=== PATIENT | male | born 1960 | race Caucasian/White ===

== ENCOUNTER 2019-07-21 18:19 | Emergency (ER) | payer BC, OTHER ==
--- NOTE | 2019-07-21 18:48 | EDM.PDOC ---
<Cory Fonseca - Last Filed: 07/21/19 19:25> ED HPI GENERAL MEDICAL PROBLEM - General Chief Complaint: Upper Extremity Injury/Pain Stated Complaint: DISLOCATED RIGHT PINKY FINGER PER PT. Time Seen by Provider: 07/21/19 18:43 Source of Information: Reports: Patient History Limitations: Reports: No Limitations - History of Present Illness INITIAL COMMENTS - FREE TEXT/NARRATIVE: The patient presents to the ER with a finger injury. 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 Some tingling is reported to the finger along with some mild pain. No other concerns reported. Onset: Today Duration: Minutes:, Constant Location: Reports: Upper Extremity, Right (right 5th digit PIP dislocation) Quality: Reports: Other (numbness) Severity: Mild Improves with: Reports: None Worsens with: Reports: None Context: Reports: Activity Associated Symptoms: Reports: No Other Symptoms Right Finger-Little Pain Score (Numeric/FACES): 2 Social & Family History - Tobacco Use Smoking Status *Q: Never Smoker - Caffeine Use Caffeine Use: Reports: Coffee Review of Systems - Review of Systems Review Of Systems: ROS reveals no pertinent complaints other than HPI. ED EXAM, GENERAL - Physical Exam Exam: See Below Exam Limited By: No Limitations General Appearance: Alert, WD/WN, No Apparent Distress Eye Exam: Bilateral Eye: Normal Inspection, PERRL Ears: Normal External Exam, Normal Canal, Hearing Grossly Normal, Normal TMs Nose: Normal Inspection Head: Atraumatic, Normocephalic Respiratory/Chest: No Respiratory Distress, Normal Breath Sounds Cardiovascular: Normal Peripheral Pulses, No Edema GI/Abdominal: Normal Bowel Sounds, Soft, Non-Tender Extremities: Other (dislocated right 5th digit at PIP joint) Neurological: Alert, Oriented, CN II-XII Intact Psychiatric: Normal Affect, Normal Mood Skin Exam: Warm, Dry, Intact ED TRAUMA EXTREMITY PROCEDURES - Joint Reduction Site: Finger (R) (right 5th digit dislocation at PIP joint) Pre-Procedure NV Status: Normal Post-Procedure NV Status: Normal Technique: Traction/Counter Traction Number of Attempts: 1 Post-Reduction Imaging: Completely Reduced, No Fracture Seen Joint Reduction Complications: No - Splinting Right 5th Digit Pre-Procedure NV Status: Normal Post-Procedure NV Status: Normal Splint Material: Aluminum-Foam Splint Design: Other (finger splint) Applied & Form Fitted By: Provider Provider Post-Splint Application NV Check: NV Status Normal Complications: No Course - Vital Signs Last Recorded V/S: Last Vital Signs Temp 98.4 F 07/21/19 19:34 Pulse 76 07/21/19 19:34 Resp 12 07/21/19 19:34 BP 124/76 07/21/19 19:34 Pulse Ox 98 07/21/19 19:34 - Orders/Labs/Meds Orders: Active Orders 24 hr Category Date Time Status Fingers Fifth Digit Rt F9 [CR] Urgent Exams 07/21/19 18:38 Taken Fingers Fifth Digit Rt F9 [CR] Urgent Exams 07/21/19 19:05 Taken - Radiology Interpretation Free Text/Narrative:: No acute fractures identified. Departure - Departure Time of Disposition: 19:08 Disposition: Home, Self-Care 01 Condition: Good Clinical Impression: Dislocation closed, fingers Qualifiers: Encounter type: initial encounter Qualified Code(s): S63.259A - Unspecified dislocation of unspecified finger, initial encounter - Discharge Information *PRESCRIPTION DRUG MONITORING PROGRAM REVIEWED*: Not Applicable *COPY OF PRESCRIPTION DRUG MONITORING REPORT IN PATIENT RIGO: Not Applicable Instructions: Finger or Thumb Dislocation, [id number] Forms: ED Department Discharge Additional Instructions: Wear finger splint for one week then shaneka tape 4th and 5th digits together. Use tylenol and/or ibuprofen as needed for pain. Apply ice and keep hand elevated. Follow up in clinic if symptoms do not improve or become worse. <Stepan Mahoney - Last Filed: 07/21/19 19:47> Course - Re-Assessments/Exams Free Text/Narrative Re-Assessment/Exam: 07/21/19 19:47 I saw and evaluated the patient. Discussed with resident and agree with resident s findings and plan as documented in the residents note.
== END 2019-07-21 19:36 | disposition home or self-care (01) ==
LOC: DL.ED 18:19
DX: S63.286A Dislocation of proximal interphalangeal joint of right little finger, initial encounter (principal); W50.0XXA Accidental hit or strike by another person, initial encounter; Y93.61 Activity, american tackle football
CPT/HCPCS: 26770; 73140-F9; 99282-25